=== PATIENT | male | born 1950 | race Two or more races ===

== ENCOUNTER 2021-01-31 02:42 | Emergency (ER) | payer MEDICARE, OTHER ==
[~2021-01-31] VITALS: Ht 175.3 cm; Wt 90.7 kg
[2021-01-31 07:42] VITALS: BP 153/89
== END 2021-01-31 08:26 | disposition home or self-care (01) ==
LOC: ER 02:42
DX: T18.9XXA Foreign body of alimentary tract, part unspecified, initial encounter (principal); E78.5 Hyperlipidemia, unspecified; I10 Essential (primary) hypertension; X58.XXXA Exposure to other specified factors, initial encounter; Y93.89 Activity, other specified; Y92.89 Other specified places as the place of occurrence of the external cause; Y99.8 Other external cause status
CPT/HCPCS: 70360; 71045; 74018